=== PATIENT | male | born 1945 | race Hispanic/Latino ===

== ENCOUNTER 2019-10-24 02:26 | Inpatient (IN) | payer BC, MEDICARE ==
[2019-10-24 02:57] LABS: #Eosinphils 0.4 thou/uL (0.0-0.7); #Lymphocytes 1.5 thou/uL (1.20-3.40); #Monocytes 0.8 thou/uL (0.11-0.59); #Neutrophils 4.1 thou/uL (1.40-6.50); %Basophils 0.4 % (0.0-1.0); %Eosinophils 5.6 % (0.0-10.0); %Lymphocytes 22.1 % (21.0-51.0); %Neutrophils 59.9 % (42.0-75.0); Hemoglobin 12.2 g/dL (14.0-18.0); Mean Corpuscular HGB CONC 36.2 g/dL (32.0-36.0); Mean Corpuscular Hemoglobin 33.7 pg (27.0-31.0); Mean Corpuscular Volume 93.1 fL (78.0-98.0); Mean Platelet Volume 8.5 fL (7.4-10.4); Platelet Count 179 thou/uL (130-400); RBC Distribution Width 11.6 % (11.5-14.5); Red Blood Cell (RBC) Count 3.62 mill/uL (4.70-6.10); White Blood Cell (WBC) Count 6.9 thou/uL (4.8-10.8)
[2019-10-24] MEDS ORDERED: Aspirin 325 MG TAB ONE (03:08)
[2019-10-24] MEDS ORDERED: Nitroglycerin 0.4 MG TAB 1 EACH ONE (03:08)
[2019-10-24 03:19] LABS: ALT (SGPT) 18 U/L (8-55); AST (SGOT) 18 U/L (5-34); Albumin 4.4 g/dL (3.4-4.8); Alkaline Phosphatase 65 U/L (40-110); Anion Gap 15 mmol/L (10-20); BUN (Urea Nitrogen) 23 mg/dL (8.4-25.7); Bilirubin, Total 0.5 mg/dL (0.2-1.2); CK (CPK) 178 U/L (30-200); Calc. Creatinine Clearance 0 mL/min (70-130); Calcium 9.7 mg/dL (7.8-10.44); Carbon Dioxide 27 mmol/L (23-31); Chloride 102 mmol/L (98-107); Estimated GFR-MDRD 49; Globulin 2.7 g/dL (2.4-3.5); Glucose 189 mg/dL (83-110); Lipase 73 U/L (8-78); Potassium 4.7 mmol/L (3.5-5.1); Protein, Total 7.1 g/dL (5.8-8.1); Sodium 139 mmol/L (136-145)
[2019-10-24] MEDS ORDERED: Mag-Al 1200 mg/1200 mg/30 ML UDCUP ONE (04:10)
[2019-10-24] MEDS ORDERED: Lidocaine Viscous Sol 2% 15 ml UD Cup ONE (04:10)
--- NOTE | 2019-10-24 04:11 | PDOC.FPRHP ---
- History of Present Illness Chief Complaint: Chest pain History of Present Illness: 74yo M w/ PMHx CAD, HTN, HLD, IDDM presents to the ED w/ complaint of chest pain. Pt states that the pain started around 0100 waking him from sleep. Describes the pain as a sharp pressure, substernal, non-radiating. Pt was concerned this was 2/2 his heart so he came in seeking further evaluation. Pt states he has never had this pain before. CABG x 6 vessels about 15 years ago after a pre-operative stress test was positive. He has not followed with a ship engineer since then. Denies any SOB, nausea, or diaphoresis w/ his pain. Denies CP w/ exertion or orthopnea. Does note chronic LE edema since his CABG. Pt reported increased pain w/ nitro and denied any resolution in sx after GI cocktail. Reports cold sx starting last week with intermittently productive cough and nasal congestion. Denies any fevers or chills w/ this. ED Course: Initial trop negative. EKG showed chronic changes. CBC and CMP unremarkable. CXR no acute process. - Allergies/Adverse Reactions Allergies Allergy/AdvReac Type Severity Reaction Status Date / Time diphenhydramine HCl Allergy Verified 03/08/15 13:21 [From Benadryl] - Home Medications Medication Instructions Recorded Confirmed Type Amlodipine [Norvasc] 10 mg PO DAILY 10/24/19 10/24/19 History Carvedilol [Coreg] 25 mg PO DAILY 10/24/19 10/24/19 History Lisinopril/Hydrochlorothiazide 1 tablet PO DAILY 10/24/19 10/24/19 History [Lisinopril-Hctz 20-12.5 mg Tab] Memantine HCl [Namenda] 5 mg PO DAILY 10/24/19 10/24/19 History Simvastatin 40 mg PO HS 10/24/19 10/24/19 History Spironolactone 25 mg PO DAILY 10/24/19 10/24/19 History glipiZIDE [Glucotrol XL] 5 mg PO QAM-WM 10/24/19 10/24/19 History metFORMIN HCl [Metformin HCl] 1,000 mg PO DAILY 10/24/19 10/24/19 History sitaGLIPtin Phosphate [Januvia] 100 mg PO DAILY 12/23/19 12/23/19 History - History PMHx: HTN, HLD, Dementia, CAD, IDDM PSHx: Cholecystectomy, CABG x6 FHx: Maternal DM Social: Denies any tobacco, alcohol, or illicit drugs - Review of Systems General: denies: fever/chills, weight/appetite/sleep changes Eyes: denies: vision changes, other ENT: denies: nasal congestion, rhinorrhea Respiratory: reports: congestion. denies: cough, shortness of breath Cardiovascular: reports: chest pain. denies: palpitation, edema, orthopnea Gastrointestinal: denies: nausea, vomiting, diarrhea, constipation, abdominal pain Genitourinary: denies: dysuria, polyuria Skin: denies: rashes, lesions Musculoskeletal: denies: pain, tenderness Neurological: denies: numbness, weakness Psychological: denies: anxiety, other - Vital signs BP: 140/74, Pulse: 71, Resp: 18, Temp: 98.0 (Oral), Pain: 5, O2 sat: 97 Wt: 86kg - Physical Exam Constitutional: NAD, awake, alert and oriented, well developed HEENT: normocephalic and atraumatic, EOMI, grossly normal vision, grossly normal hearing, MMM Neck: supple, FROM Chest: no-tender to palpation, no lesions Heart: RRR, normal S1/S2 -Heart: 1+ pitting edema to bilateral LE Lungs: CTAB, no respiratory distress, good air movement, no rales/rhonchi, no wheezing Abdomen: soft, non-tender -Abdomen: Hyperactive bowel sounds Neurological: no focal deficit, CN II-XII intact Skin: no rash/lesions, capillary refill <2 seconds -Heme/Lymphatic: Few senile purpura to upper extremities Psychiatric: normal mood and affect, good judgment and insight, intact recent and remote memory FMR H&P: Results - Labs Result Diagrams: 10/24/19 02:44 10/24/19 02:44 Lab results: WBC 6.9 thou/uL (4.8-10.8) 10/24/19 02:44 Hgb 12.2 g/dL (14.0-18.0) L 10/24/19 02:44 Hct 33.7 % (42.0-52.0) L 10/24/19 02:44 MCV 93.1 fL (78.0-98.0) 10/24/19 02:44 Plt Count 179 thou/uL (130-400) 10/24/19 02:44 Neutrophils % 59.9 % (42.0-75.0) 10/24/19 02:44 Sodium 139 mmol/L (136-145) 10/24/19 02:44 Potassium 4.7 mmol/L (3.5-5.1) 10/24/19 02:44 Chloride 102 mmol/L (98-107) 10/24/19 02:44 Carbon Dioxide 27 mmol/L (23-31) 10/24/19 02:44 BUN 23 mg/dL (8.4-25.7) 10/24/19 02:44 Creatinine 1.43 mg/dL (0.7-1.3) H 10/24/19 02:44 Glucose 189 mg/dL (83-110) H 10/24/19 02:44 Calcium 9.7 mg/dL (7.8-10.44) 10/24/19 02:44 Total Bilirubin 0.5 mg/dL (0.2-1.2) 10/24/19 02:44 AST 18 U/L (5-34) 10/24/19 02:44 ALT 18 U/L (8-55) 10/24/19 02:44 Alkaline Phosphatase 65 U/L (40-110) 10/24/19 02:44 Creatine Kinase 178 U/L (30-200) 10/24/19 02:44 Serum Total Protein 7.1 g/dL (5.8-8.1) 10/24/19 02:44 Albumin 4.4 g/dL (3.4-4.8) 10/24/19 02:44 Lipase 73 U/L (8-78) 10/24/19 02:44 - EKG Interpretation EKG: NSR, chronic changes, no ST elevation or depression FMR H&P: A/P - Problem List (1) IDDM (insulin dependent diabetes mellitus) Current Visit: Yes Status: Acute Code(s): E11.9 - TYPE 2 DIABETES MELLITUS WITHOUT COMPLICATIONS; Z79.4 - USP (CURRENT) USE OF INSULIN (2) HTN (hypertension) Current Visit: Yes Status: Acute Code(s): I10 - ESSENTIAL (PRIMARY) HYPERTENSION (3) HLD (hyperlipidemia) Current Visit: Yes Status: Acute Code(s): E78.5 - HYPERLIPIDEMIA, UNSPECIFIED (4) Atypical chest pain Current Visit: Yes Status: Acute Code(s): R07.89 - OTHER CHEST PAIN (5) CAD (coronary artery disease) Current Visit: Yes Status: Acute Code(s): I25.10 - ATHSCL HEART DISEASE OF [place] CORONARY ARTERY W/O ANG PCTRS (6) Hx of CABG Current Visit: Yes Status: Acute - Plan Atypical Chest Pain - ACS vs Costochondritis vs Esophageal Spasm vs GERD - Central, non exertional, worse with nitro, not improved w/ GI cocktail, no associated sx - Previous 6 vessel CABG ~15yr ago - Heart score: 5, Risk factors: Obesity, HLD, HTN, IDDM, Hx CAD - Initial trop neg, cont trend - CXR neg for acute process - Chemical nuclear stress test ordered - NPO - PRN nitro Chronic Problems HTN - Continue amlodipine, Lisinopril-hctz - Hold carvedilol HLD - Continue simvastatin IDDM - Continue basal insulin, glipizide, januvia Dementia - Continue namenda IVF: SL Diet: NPO VTE: SCD Code: Full Dispo: Admit to tele obs for ACS r/o. 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 Denies sob, pleurisy, NVDC, diaphoresis. Currently denies any pain. Was given GI cocktail and nitro in ED. REports pain worsened with nitro. Some relief with GI cocktail. - Pertinent findings ROS; As above PE: Gen: NAD resting comfortably in bed HEENT: NCAT, PERRLA, EOMI CV: RRR No MRG Resp: CTAbl no wrr Abd: Soft NTND bsx4, no epigatric pain Neuro: No focal deficit Psych: Alert anc cooperative - Plan Date/Time: 10/24/19 0411 ISharif DO, have evaluated this patient and agree with findings/ plan as outlined by nutrition internship resident. Pertinent changes/additions are listed here. 1) Atypical cp: - admit tele obs and trend trops initial negative - consider stress pending lab results - nitro prn - consider cards consult pending results 2) HTN: Cont home medications 3) CAD: Cont home meds 4) DMII: cont home meds 5) HLD: - cont home meds - HI statin Dispo: Stable, admit to tele obs and trend troponins, clnical course pendign troponin results. Addendum - Attending - Attending Attestation Date/Time: 10/24/19 6000 I personally evaluated the patient and discussed the management with Dr. Woods. I agree with the History, Examination, Assessment and Plan documented above with any addition or exceptions noted below. The patient presented to the ER after waking with sharp substernal non- radiating chest pain. The patient's cardiac enzymes continue to rise. Stress test will be canceled and cardiology will be consulted for NSTEMI. Echo is pending.
[2019-10-24] MEDS ORDERED: Dextrose 5% in Water 1,000 ML IV PRN (05:45)
[2019-10-24] MEDS ORDERED: Dextrose 50% Abboject 50 ML SYRINGE SLOW IVP PRN (05:45)
[2019-10-24] MEDS ORDERED: Acetaminophen 325 MG TAB PO PRN (05:45)
[2019-10-24] MEDS ORDERED: Nitroglycerin 0.4 MG TAB (25 Tab Bottle) PO PRN (05:45)
[2019-10-24 05:54] VITALS: BMI 30.1
[2019-10-24 06:46] LABS: Troponin I 0.286 ng/mL (< 0.028)
[2019-10-24] MEDS ORDERED: metFORMIN 500 MG TAB PO SCH (08:00)
[2019-10-24] MEDS: Lisinopril/Hydrochlorothiazide 20 mg/12.5 mg Tablet PO SCH (08:22)
[2019-10-24] MEDS: Famotidine 20 MG TAB PO SCH ×2 (08:22→20:32)
[2019-10-24] MEDS: Alogliptin 25 MG TAB PO SCH (08:22)
[2019-10-24] MEDS: Amlodipine 10 MG TAB PO SCH (08:23)
[2019-10-24] MEDS: Spironolactone 25 MG TAB PO SCH (08:23)
--- NOTE | 2019-10-24 08:43 | RAD ---
PORTABLE CHEST: Date: 10/24/19 HISTORY: Chest pain. FINDINGS: Lung catalan are clear. Heart and mediastinum appear normal. Postop sternotomy changes are again noted . IMPRESSION: No acute findings. POS: [facility]
[2019-10-24] MEDS ORDERED: Prevnar 13-Val Conj/PF 0.5 ML SYRINGE IM ONE (09:00)
[2019-10-24 09:25] LABS: Troponin I 1.706 ng/mL (< 0.028)
[2019-10-24] MEDS: Enoxaparin Sodium 100 MG/ML SYRINGE SC SCH ×3 (10:10→20:31)
[2019-10-24] MEDS ORDERED: Clopidogrel Bisulfate 300 MG TAB PO SCH (11:00)
--- NOTE | 2019-10-24 17:06 | CON ---
DATE OF CONSULTATION: HISTORY OF PRESENT ILLNESS: The patient is a 74-year-old gentleman, who presents for evaluation of chest discomfort. The patient has a history of PTCA in 1991. He subsequently underwent coronary artery bypass graft surgery x3 in 2002. The patient was recently noticed having a left midsternal chest discomfort. He presented to the emergency room with severe chest discomfort. The patient received nitroglycerin with resolution of discomfort. The patient denies having any present discomfort. PAST MEDICAL HISTORY: 1. Coronary artery disease. 2. Hypertension. 3. Dyslipidemia. 4. Dementia. PAST SURGICAL HISTORY: Cholecystectomy. SOCIAL HISTORY: Nonsmoker. ALLERGIES: KNOWN DRUG ALLERGIES. MEDICATIONS: 1. Coreg 25 mg p.o. daily. 2. Norvasc 10 daily. 3. Spironolactone 25 daily. 4. Namenda 5 daily. 5. Simvastatin 40 daily. 6. Glucotrol 5 daily. 7. Metformin 1000 daily. 8. Januvia 100 daily. REVIEW OF SYSTEMS: Ten-point system otherwise unremarkable. PHYSICAL EXAMINATION: GENERAL: Well-developed gentleman, no acute distress. VITAL SIGNS: Blood pressure 130/60. NECK: No jugular venous distention. LUNGS: Clear to auscultation. HEART: Regular rate and rhythm. Normal S1 and S2. ABDOMEN: Nondistended. EXTREMITIES: Show no edema. VASCULAR: Radial pulses are 2+. LABORATORY RESULTS: Sodium 139, potassium 4.7, chloride 102, bicarb 27, BUN 23, creatinine 1.4, and glucose 189. Troponin 1.7. His white blood cell count was 6.9, hemoglobin 12.2, hematocrit 37.7, and platelets 179. EKG revealed normal sinus rhythm, normal ECG. IMPRESSION: 1. Status post non-Q-wave myocardial infarction. 2. History of coronary bypass graft surgery. 3. Hypertension. 4. Diabetes mellitus. 5. Dyslipidemia. 6. Dementia. This gentleman suffered a small non-Q-wave myocardial infarction. The patient will be treated with aspirin, Plavix, and Lovenox. We will switch the patient to Crestor. I have discussed the option of cardiac catheterization versus medical therapy. The patient strongly prefers to be treated medically. We will check the patient's echocardiogram and follow this patient with you through his hospitalization. Job ID: [id number] [facility]
[2019-10-24] MEDS: Rosuvastatin 20 MG TAB PO SCH (20:32)
[2019-10-24] MEDS: Insulin Glargine 15 UNITS in Pre-Filled Syringe 1 EACH SC SCH (20:32)
[2019-10-24] MEDS ORDERED: Simvastatin 40 MG TAB PO SCH (21:00)
--- NOTE | 2019-10-25 05:36 | PDOC.FM ---
- Subjective Subjective: This morning he is doing well. He has no complaints of pain. He says he is eating fine and sleeping well. - Objective MAR Reviewed: Yes Vital Signs & Weight: Vital Signs (12 hours) Temp Pulse Resp BP Pulse Ox 10/25/19 04:00 98 10/25/19 03:19 98.2 F 80 14 136/68 98 10/25/19 00:00 98 10/24/19 23:35 98.2 F 85 14 123/59 L 98 10/24/19 20:00 98 10/24/19 19:58 98.2 F 74 16 123/58 L 98 Weight Weight 89.811 kg I&O: 10/23/19 10/24/19 10/25/19 06:59 06:59 06:59 Intake Total 480 Balance 480 Result Diagrams: 10/25/19 05:35 10/25/19 05:35 Phys Exam - Physical Examination Constitutional: NAD HEENT: PERRLA, moist MMs Neck: full ROM slight end expiratory wheeze Cardiovascular: RRR, no significant murmur Gastrointestinal: soft, non-tender, positive bowel sounds Musculoskeletal: no edema, pulses present Neurological: moves all 4 limbs Psychiatric: normal affect Deviation from normal: A&O x2 Skin: no rash Dx/Plan (1) Atypical chest pain Code(s): R07.89 - OTHER CHEST PAIN Status: Acute (2) CAD (coronary artery disease) Code(s): I25.10 - ATHSCL HEART DISEASE OF [place] CORONARY ARTERY W/O ANG PCTRS Status: Acute (3) HLD (hyperlipidemia) Code(s): E78.5 - HYPERLIPIDEMIA, UNSPECIFIED Status: Acute (4) HTN (hypertension) Code(s): I10 - ESSENTIAL (PRIMARY) HYPERTENSION Status: Acute (5) Hx of CABG Status: Acute (6) IDDM (insulin dependent diabetes mellitus) Code(s): E11.9 - TYPE 2 DIABETES MELLITUS WITHOUT COMPLICATIONS; Z79.4 - FPC (CURRENT) USE OF INSULIN Status: Acute - Plan Plan: 74yo M w/ PMHx CAD, HTN, HLD, IDDM presents to the ED w/ complaint of chest pain. Atypical Chest Pain - ACS vs Costochondritis vs Esophageal Spasm vs GERD * Central, non exertional, worse with nitro, not improved w/ GI cocktail, no associated sx * Previous 6 vessel CABG ~15yr ago * Heart score: 5, Risk factors: Obesity, HLD, HTN, IDDM, Hx CAD * Trops: <0.01 > 0.286 > 1.706 > 11 * CXR: NAF * Stress canceled due to elevated troponins * Prn nitro * Cardiology consulted, appreciate recs * Plavix, ASA, Crestor, Lovenox * Will medically manage, due to pt declining cath * ECHO: EF 50-55% Mild LA dilation, LV size increased, Dystolic Dysfunction, Mild MR & TR HTN * Continue amlodipine, Lisinopril-hctz, and coreg HLD * Continue simvastatin IDDM * Continue basal insulin, glipizide, januvia Dementia * Continue namenda * Will discuss with family this morning. Pt states not remembering declining cath yesterday. IVF: SL Diet: HHLSo VTE: Therapeutic Lovenox Code: Full PCP: Mary Dispo: Tele inpt for ACS, ELOS >48H. Treat with Therapeutic Lovenox for 3 days. Addendum - Attending - Attending Attestation Date/Time: 10/25/19 1004 I personally evaluated the patient and discussed the management with Dr. Pandey. I agree with the History, Examination, Assessment and Plan documented above with any addition or exceptions noted below. Patient and have opted for medical management for recent nstemi. He will continue on therapeutic lovenox until tomorrow.
[2019-10-25 05:57] LABS: #Eosinphils 0.3 thou/uL (0.0-0.7); #Lymphocytes 1.6 thou/uL (1.20-3.40); #Monocytes 0.6 thou/uL (0.11-0.59); #Neutrophils 3.8 thou/uL (1.40-6.50); %Basophils 0.7 % (0.0-1.0); %Eosinophils 4.8 % (0.0-10.0); %Lymphocytes 24.7 % (21.0-51.0); %Monocytes 9.7 % (0.0-10.0); %Neutrophils 60.1 % (42.0-75.0); Hemoglobin 11.7 g/dL (14.0-18.0); Mean Corpuscular HGB CONC 35.1 g/dL (32.0-36.0); Mean Corpuscular Hemoglobin 32.5 pg (27.0-31.0); Mean Corpuscular Volume 92.6 fL (78.0-98.0); Mean Platelet Volume 8.5 fL (7.4-10.4); Platelet Count 160 thou/uL (130-400); RBC Distribution Width 11.4 % (11.5-14.5); White Blood Cell (WBC) Count 6.3 thou/uL (4.8-10.8)
[2019-10-25 06:15] LABS: Albumin 3.6 g/dL (3.4-4.8); Anion Gap 11 mmol/L (10-20); BUN (Urea Nitrogen) 18 mg/dL (8.4-25.7); Bilirubin, Total 0.4 mg/dL (0.2-1.2); Calc. Creatinine Clearance 79 mL/min (70-130); Carbon Dioxide 26 mmol/L (23-31); Chloride 104 mmol/L (98-107); Estimated GFR-MDRD 68; Glucose 127 mg/dL (83-110); Potassium 4.1 mmol/L (3.5-5.1); Protein, Total 6.1 g/dL (5.8-8.1); Sodium 137 mmol/L (136-145)
[2019-10-25 06:16] LABS: ALT (SGPT) 18 U/L (8-55); AST (SGOT) 40 U/L (5-34); Alkaline Phosphatase 56 U/L (40-110); Globulin 2.5 g/dL (2.4-3.5)
[2019-10-25 06:25] LABS: Troponin I 11.697 ng/mL (< 0.028)
[2019-10-25] MEDS ORDERED: Carvedilol 25 MG TAB PO SCH ×2 (09:00→10:00)
[2019-10-25] MEDS: Enoxaparin Sodium 100 MG/ML SYRINGE SC SCH ×2 (09:16→21:34)
[2019-10-25] MEDS: Amlodipine 10 MG TAB PO SCH (09:39)
[2019-10-25] MEDS: Clopidogrel Bisulfate 75 MG TAB PO SCH (09:39)
[2019-10-25] MEDS: Lisinopril/Hydrochlorothiazide 20 mg/12.5 mg Tablet PO SCH (09:39)
[2019-10-25] MEDS: Famotidine 20 MG TAB PO SCH ×2 (09:39→21:34)
[2019-10-25] MEDS: Spironolactone 25 MG TAB PO SCH (09:39)
[2019-10-25] MEDS: Aspirin 81 mg Enteric Coated Tablet PO SCH (09:40)
[2019-10-25] MEDS: Alogliptin 25 MG TAB PO SCH (09:40)
[2019-10-25] MEDS ORDERED: HumaLOG 300 UNITS/3 ML VIAL SC PRN (11:50)
[2019-10-25] MEDS: HumaLOG 300 UNITS/3 ML VIAL SC PRN ×2 (12:23→19:03)
--- NOTE | 2019-10-25 14:08 | EKG ---
Test Reason : Blood Pressure : / mmHG Vent. Rate : 069 BPM Atrial Rate : 069 BPM P-R Int : 154 ms QRS Dur : 084 ms QT Int : 398 ms P-R-T Axes : 039 -06 002 degrees QTc Int : 426 ms Normal sinus rhythm Normal ECG Confirmed by GALLO BALDWIN ([id number]), fashion editor JORGE MCRAE ([id number]) on 10/25/2019 2:07:45 PM Referred By: Confirmed By:GALLO BALDWIN
[2019-10-25] MEDS: Carvedilol 25 MG TAB PO SCH (17:17)
[2019-10-25] MEDS: Insulin Glargine 15 UNITS in Pre-Filled Syringe 1 EACH SC SCH (21:34)
[2019-10-25] MEDS: Rosuvastatin 20 MG TAB PO SCH (21:34)
--- NOTE | 2019-10-26 05:07 | PDOC.FM ---
Addendum entered and electronically signed by Waldo Pandey MD 10/26/19 09:52: Per Cardio recs, hold till tomorrow and start Vascepa. Original Note: - Subjective Subjective: He is doing well. He has had some difficulty sleeping because his feet are cold. He is able to get up and go to the bathroom with no problems. He has been eating well and has no complaints. - Objective MAR Reviewed: Yes Vital Signs & Weight: Vital Signs (12 hours) Temp Pulse Resp BP Pulse Ox 10/26/19 04:00 97.9 F 73 20 99/56 L 97 10/25/19 23:45 99.9 F H 77 16 106/58 L 94 L 10/25/19 20:16 98.4 F 76 18 129/63 98 Weight Weight 89.811 kg I&O: 10/24/19 10/25/19 10/26/19 06:59 06:59 06:59 Intake Total 480 540 Balance 480 540 Result Diagrams: 10/25/19 05:35 10/25/19 05:35 Phys Exam - Physical Examination Constitutional: NAD HEENT: PERRLA, moist MMs, oral pharynx no lesions Neck: supple, full ROM Respiratory: clear to auscultation bilateral Cardiovascular: RRR, no significant murmur Gastrointestinal: soft, non-tender, positive bowel sounds Musculoskeletal: no edema, pulses present Neurological: moves all 4 limbs Psychiatric: normal affect Deviation from normal: A&O x2 Skin: no rash Dx/Plan (1) Atypical chest pain Code(s): R07.89 - OTHER CHEST PAIN Status: Acute (2) CAD (coronary artery disease) Code(s): I25.10 - ATHSCL HEART DISEASE OF [place] CORONARY ARTERY W/O ANG PCTRS Status: Acute (3) HLD (hyperlipidemia) Code(s): E78.5 - HYPERLIPIDEMIA, UNSPECIFIED Status: Acute (4) HTN (hypertension) Code(s): I10 - ESSENTIAL (PRIMARY) HYPERTENSION Status: Acute (5) Hx of CABG Status: Acute (6) IDDM (insulin dependent diabetes mellitus) Code(s): E11.9 - TYPE 2 DIABETES MELLITUS WITHOUT COMPLICATIONS; Z79.4 - DIRECTOR STRATEG[employer] PLANNING (CURRENT) USE OF INSULIN Status: Acute - Plan Plan: 74yo M w/ PMHx CAD, HTN, HLD, IDDM presents to the ED w/ complaint of chest pain. 1. Atypical Chest Pain - ACS vs Costochondritis vs Esophageal Spasm vs GERD * Central, non exertional, worse with nitro, not improved w/ GI cocktail, no associated sx * Previous 6 vessel CABG ~15yr ago * Heart score: 5, Risk factors: Obesity, HLD, HTN, IDDM, Hx CAD * Trops: <0.01 > 0.286 > 1.706 > 11 * CXR: NAF * Stress canceled due to elevated troponins * Prn nitro * Cardiology consulted, appreciate recs * Plavix, ASA, Crestor, and Therapeutic Lovenox * Will medically manage, due to pt declining cath * ECHO: EF 50-55% Mild LA dilation, LV size increased, Dystolic Dysfunction, Mild MR & TR 2. HTN * Continue amlodipine, Lisinopril-hctz, and coreg 3. HLD * Continue simvastatin 4. IDDM * Continue basal insulin, glipizide, januvia 5. Dementia * Continue namenda * Will discuss with family this morning. Pt states not remembering declining cath yesterday. IVF: SL Diet: HHLSo VTE: Therapeutic Lovenox Code: Full PCP: Mary Dispo: Tele inpt for ACS, based on cardio's recs can likely d/c this morning after Lovenox dosing. Will check and make sure they have no further recommendations. Addendum - Attending - Attending Attestation Date/Time: 10/26/19 1050 I personally evaluated the patient and discussed the management with Dr. Pandey. I agree with the History, Examination, Assessment and Plan documented above with any addition or exceptions noted below. The patient is resting comfortably. Cardiology wants to keep him until tomorrow. Adding vascepa. Finishing therapeutic lovenox.
[2019-10-26 05:42] LABS: Cardiac Risk 4.5 (Less than 4.5)
[2019-10-26] MEDS: Alogliptin 25 MG TAB PO SCH (08:17)
[2019-10-26] MEDS: Amlodipine 10 MG TAB PO SCH (08:17)
[2019-10-26] MEDS: Aspirin 81 mg Enteric Coated Tablet PO SCH (08:17)
[2019-10-26] MEDS: Lisinopril/Hydrochlorothiazide 20 mg/12.5 mg Tablet PO SCH (08:17)
[2019-10-26] MEDS: Clopidogrel Bisulfate 75 MG TAB PO SCH (08:17)
[2019-10-26] MEDS: Famotidine 20 MG TAB PO SCH ×2 (08:17→22:12)
[2019-10-26] MEDS: Carvedilol 25 MG TAB PO SCH ×2 (08:18→18:04)
[2019-10-26] MEDS: Enoxaparin Sodium 100 MG/ML SYRINGE SC SCH (08:18)
[2019-10-26] MEDS: Spironolactone 25 MG TAB PO SCH (08:18)
[2019-10-26] MEDS: HumaLOG 300 UNITS/3 ML VIAL SC PRN ×2 (11:23→18:04)
[2019-10-26] MEDS: Rosuvastatin 20 MG TAB PO SCH (22:12)
[2019-10-26] MEDS: Insulin Glargine 15 UNITS in Pre-Filled Syringe 1 EACH SC SCH (22:12)
--- NOTE | 2019-10-27 06:26 | PDOC.FM ---
- Subjective Subjective: Pt has had no chest pain or complaints. He is sleeping well and eating well. - Objective MAR Reviewed: Yes Vital Signs & Weight: Vital Signs (12 hours) Temp Pulse Resp BP BP Pulse Ox 10/27/19 03:33 97.9 F 66 16 117/58 L 99 10/26/19 23:22 98.4 F 66 20 114/55 L 97 10/26/19 20:00 99 10/26/19 19:52 97.8 F 73 20 131/66 99 Weight Weight 89.811 kg I&O: 10/25/19 10/26/19 10/27/19 06:59 06:59 06:59 Intake Total 480 540 Balance 480 540 Result Diagrams: 10/25/19 05:35 10/25/19 05:35 Phys Exam - Physical Examination Constitutional: NAD HEENT: PERRLA, moist MMs, oral pharynx no lesions Neck: supple, full ROM Respiratory: clear to auscultation bilateral Cardiovascular: RRR, no significant murmur Gastrointestinal: soft, non-tender, positive bowel sounds Musculoskeletal: no edema, pulses present Neurological: moves all 4 limbs Lymphatic: no nodes Psychiatric: normal affect Skin: no rash Dx/Plan (1) Atypical chest pain Code(s): R07.89 - OTHER CHEST PAIN Status: Acute (2) CAD (coronary artery disease) Code(s): I25.10 - ATHSCL HEART DISEASE OF [place] CORONARY ARTERY W/O ANG PCTRS Status: Acute (3) HLD (hyperlipidemia) Code(s): E78.5 - HYPERLIPIDEMIA, UNSPECIFIED Status: Acute (4) HTN (hypertension) Code(s): I10 - ESSENTIAL (PRIMARY) HYPERTENSION Status: Acute (5) Hx of CABG Status: Acute (6) IDDM (insulin dependent diabetes mellitus) Code(s): E11.9 - TYPE 2 DIABETES MELLITUS WITHOUT COMPLICATIONS; Z79.4 - RETIREMENT (CURRENT) USE OF INSULIN Status: Acute - Plan Plan: 74yo M w/ PMHx CAD, HTN, HLD, IDDM presents to the ED w/ complaint of chest pain. 1. Atypical Chest Pain - ACS vs Costochondritis vs Esophageal Spasm vs GERD * Central, non exertional, worse with nitro, not improved w/ GI cocktail, no associated sx * Previous 6 vessel CABG ~15yr ago * Heart score: 5, Risk factors: Obesity, HLD, HTN, IDDM, Hx CAD * Trops: <0.01 > 0.286 > 1.706 > 11 * CXR: NAF * Stress canceled due to elevated troponins * Prn nitro * Cardiology consulted, appreciate recs * Plavix, ASA, Crestor, and Therapeutic Lovenox * Will medically manage, due to pt declining cath * ECHO: EF 50-55% Mild LA dilation, LV size increased, Dystolic Dysfunction, Mild MR & TR 2. HTN * Continue amlodipine, Lisinopril-hctz, and coreg 3. HLD * Continue simvastatin 4. IDDM * Continue basal insulin, glipizide, januvia 5. Dementia * Continue namenda * Will discuss with family this morning. Pt states not remembering declining cath yesterday. IVF: SL Diet: HHLSo VTE: Therapeutic Lovenox Code: Full PCP: Mary Dispo: Tele inpt for ACS, will d/c after talking to Cardiology. Addendum - Attending - Attending Attestation Date/Time: 10/27/19 1011 I personally evaluated the patient and discussed the management with Dr. Pandey. I agree with the History, Examination, Assessment and Plan documented above with any addition or exceptions noted below. The patient is sitting up eating breakfast. No chest pain. He will d/c home with new meds from cardiology. Stressed importance of following up.
[2019-10-27 07:56] VITALS: BP 144/70; TEMP 98.8
[2019-10-27] MEDS: Carvedilol 25 MG TAB PO SCH (08:52)
[2019-10-27] MEDS: Amlodipine 10 MG TAB PO SCH (08:54)
[2019-10-27] MEDS: Spironolactone 25 MG TAB PO SCH (08:54)
[2019-10-27] MEDS: Lisinopril/Hydrochlorothiazide 20 mg/12.5 mg Tablet PO SCH (08:54)
[2019-10-27] MEDS: Alogliptin 25 MG TAB PO SCH (08:54)
[2019-10-27] MEDS: Aspirin 81 mg Enteric Coated Tablet PO SCH (08:54)
[2019-10-27] MEDS: Clopidogrel Bisulfate 75 MG TAB PO SCH (08:54)
[2019-10-27] MEDS: Famotidine 20 MG TAB PO SCH (08:55)
[2019-10-27] MEDS ORDERED: Enoxaparin Sodium 40 MG/0.4 ML SYRINGE SC SCH (09:00)
[2019-10-27] MEDS: HumaLOG 300 UNITS/3 ML VIAL SC PRN (11:14)
--- NOTE | 2019-10-27 12:27 | DIS ---
DATE OF ADMISSION: 10/24/2019 DATE OF DISCHARGE: 10/27/2019 RESIDENT: Waldo Pandey MD ADMITTING ATTENDING: Dr. Tonya Daily. DISCHARGE ATTENDING: Dr. Tonya Daily. CONSULTS: Cardiology, Dr. Kel Motley, on 10/24/2019, the patient has suffered a small non-Q-wave myocardial infarction. He will be treated with aspirin, Plavix, and Lovenox. We will switch the patient to Crestor. Cardiac cath was discussed with the patient, but he declines and wants medical therapy. The patient will be sent with aspirin, Plavix, Crestor, and Vascepa upon discharge. PROCEDURES: Chest x-ray on 10/24 shows no acute findings. Echo on 10/24 shows EF of 50% to 55% with mildly increased left ventricle and diastolic dysfunction. Mild mitral regurg is present. Mild dilation of left atrium. PRIMARY DIAGNOSIS: Myocardial infarction. SECONDARY DIAGNOSES: 1. Coronary artery disease. 2. Hyperlipidemia. 3. Hypertension. 4. History of coronary artery bypass grafting. 5. Type-2 diabetes, insulin dependent. DISCHARGE MEDICATIONS: Continue all home medications except for simvastatin changed to rosuvastatin 20 mg daily, Vascepa 1 g p.o. b.i.d. added, and Plavix 75 mg daily added, as well as 81 mg aspirin daily. DISCONTINUED MEDICATIONS: 1. Therapeutic Lovenox. 2. Alogliptin. 3. Tylenol. 4. Simvastatin. 5. Glucagon. 6. Sliding scale insulin. HISTORY OF PRESENT ILLNESS: The patient is a 74-year-old male with past medical history of coronary artery disease, hypertension, hyperlipidemia, and insulin-dependent diabetes, who presents to the ED with complaint of chest pain. The patient states that the pain started around 01:00 a.m., waking him from sleep, describes the pain as a sharp pressure, substernal, nonradiating. The patient was concerned this was secondary to his heart, so he came in seeking further evaluation. The patient states he has never had this pain before CABG x6 vessels about 15 years ago after preoperative stress test was positive. He has not followed up with a piper installer since then. Denies any shortness of breath, nausea, or diaphoresis with this pain. Denies chest pain with exertion or orthopnea. Does note chronic lower extremity edema since his CABG. The patient reported increased pain with nitroglycerin and denies any resolution in symptoms after GI cocktail. Reports cold symptoms after last week with intermittently productive cough and nasal congestion. Denies any fevers or chills with this. Initial troponin, negative. EKG showed chronic changes. CBC and CMP, unremarkable. Chest x-ray, no acute process. 1. Myocardial infarction with atypical chest pain. a. Central, nonexertional, worse with nitroglycerin, not improved with GI cocktail, no associated symptoms. b. Previous 6-vessel CABG 15 years ago. c. Heart score 5. d. Risk factors; obesity, hyperlipidemia, hypertension, insulin-dependent diabetes, and history of coronary artery disease. e. Troponins were less than 0.01, 0.286, 1.706, and 11. Chest x-ray showed no acute findings as above. f. Stress canceled due to elevated troponins. g. P.r.n. nitroglycerin. h. Cardiology consulted. Appreciate recommendations. Recommend therapeutic Lovenox for 3 days and then discharge with Plavix, aspirin, Crestor, and Vascepa. i. Will follow up with Cardiology and get a stress. j. Medically managing due to the patient declined cath. k. Echo shows EF of 50% to 55%. Mild left atrial dilation, left ventricle size increased, diastolic dysfunction, and mild mitral and tricuspid regurg. 2. Hypertension. a. Continue amlodipine, lisinopril, hydrochlorothiazide, and Coreg. 3. Hyperlipidemia. a. Change simvastatin to rosuvastatin. 4. Insulin-dependent diabetes. a. Continue basal insulin, glipizide, and Januvia. 5. Dementia. a. Continue Namenda. DISPOSITION: Stable. DISCHARGE INSTRUCTIONS: 1. Location: Home. 2. Diet: Consistent carb, heart healthy, low sodium. 3. Activity: As tolerated. 4. Follow up with Sharad PCP in [address] Motley in 14 days>. Job ID: [id number]
== END 2019-10-27 11:35 | disposition home or self-care (01) | DRG 282 ==
LOC: ERS 02:26 → 2SE 05:34 → OBSVTOIN 16:10
PROVIDERS: ADMIT Family Medicine; ATTEND Family Medicine
PROC: 3E0234Z Introduction of Serum, Toxoid and Vaccine into Muscle, Percutaneous Approach (ICD-10-PCS; principal; 2019-10-24)
DX: I21.4 Non-ST elevation (NSTEMI) myocardial infarction (principal); I25.10 Atherosclerotic heart disease of native coronary artery without angina pectoris; I10 Essential (primary) hypertension; E78.5 Hyperlipidemia, unspecified; E11.9 Type 2 diabetes mellitus without complications; E78.00 Pure hypercholesterolemia, unspecified; E66.9 Obesity, unspecified; F03.90 Unspecified dementia, unspecified severity, without behavioral disturbance, psychotic disturbance, mood disturbance, and anxiety; Z95.1 Presence of aortocoronary bypass graft; Z88.8 Allergy status to other drugs, medicaments and biological substances; Z79.899 Other long term (current) drug therapy; Z90.49 Acquired absence of other specified parts of digestive tract; Z79.4 Long term (current) use of insulin; Z95.5 Presence of coronary angioplasty implant and graft; Z68.30 Body mass index [BMI] 30.0-30.9, adult; I08.1 Rheumatic disorders of both mitral and tricuspid valves; Z23 Encounter for immunization
CPT/HCPCS: 36415; 36416; 71045; 80053; 80061; 82550; 83690; 84484; 85025; 90471; 90670; 93005; 93306; 94760; G0009; J1650; J1815